=== PATIENT | female | born 1995 | race Caucasian/White ===

== ENCOUNTER 2018-04-13 09:18 | Outpatient (CLI) | payer BC, MEDICAID ==
[2018-04-13 12:52] LABS: BASOPHILS % (AUTO) 0.1 %; EOSINOPHILS # (AUTO) 0.1 10^3/uL (0.0-0.7); EOSINOPHILS % (AUTO) 0.9 %; LYMPHOCYTES # (AUTO) 2.1 10^3/uL (1.5-3.5); LYMPHOCYTES % (AUTO) 26.4 %; MEAN CORPUSCULAR HEMOGLOBIN 30.9 pg (27.0-31.0); MEAN CORPUSCULAR HGB CONC 34.4 g/dL (32.0-36.0); MEAN CORPUSCULAR VOLUME 89.8 fL (81.0-99.0); MEAN PLATELET VOLUME 10.3 fL (7.9-10.8); MONOCYTES # (AUTO) 0.4 10^3/uL (0.0-1.0); MONOCYTES % (AUTO) 5.3 %; NEUTROPHILS # (AUTO) 5.4 10^3/uL (1.5-6.6); NEUTROPHILS % (AUTO) 67.3 %; PLT - PLATELET COUNT 185 10^3/uL (130-450); RED BLOOD COUNT 4.55 10^6/uL (4.20-5.40); RED CELL DISTRIBUTION WIDTH 12.5 % (12.0-15.0)
[2018-04-13 13:00] LABS: ALBUMIN 3.9 g/dL (3.2-5.5); ALBUMIN/GLOBULIN RATIO 1.1 (1.0-2.2); BILIRUBIN,TOTAL 0.8 mg/dL (0.2-1.0); CREATININE 0.7 mg/dL (0.4-1.0); TOTAL PROTEIN 7.3 g/dL (6.7-8.2)
== END 2018-04-13 09:19 | disposition home or self-care (01) ==
LOC: LAB.WCP 09:18
PROVIDERS: ATTEND Nurse Practitioner
DX: R10.9 Unspecified abdominal pain (principal)
CPT/HCPCS: 36415; 80053; 85025

== ENCOUNTER 2018-08-21 21:02 | Outpatient (CLI) | payer BC ==
--- NOTE | 2018-08-22 11:14 | Ultrasound Report ---
Reason: PERIUMBILICAL HERNIA Procedure Date: 08/21/2018 Accession Number: [id number] / [id number] Procedure: US - Abdomen Limited CPT Code: FULL RESULT: EXAM: ABDOMEN ULTRASOUND LIMITED EXAM DATE: 08/21/2018 09:10 PM. CLINICAL HISTORY: Periumbilical hernia. COMPARISON: None. TECHNIQUE: Real-time scanning was performed with static images obtained. FINDINGS: Focused abdominal ultrasound was performed along the midline of the anterior abdominal wall just superior to the umbilicus. This reveals an approximately 6 mm wide focal defect in the rectus sheath with reducible herniation of abdominal wall musculature. No hernia with demonstrable peritoneal content is identified. IMPRESSION: Questionable abdominal wall defect as described. RADIA
== END 2018-08-21 21:03 | disposition home or self-care (01) ==
LOC: DI 21:02
PROVIDERS: ATTEND Physician Assistant
DX: K42.9 Umbilical hernia without obstruction or gangrene (principal)
CPT/HCPCS: 76705

== ENCOUNTER 2019-01-01 07:08 | Day surgery (SDC) | payer BC ==
[2019-01-01] MEDS ORDERED: LACTATED RINGERS 1,000 ML IV ONE ×2 (07:17→09:53)
[2019-01-01 07:30] LABS: HCG UR QUAL NEGATIVE
--- NOTE | 2019-01-01 08:02 | ANESTHESIA ---
Pre-Anesthesia VS, & Labs - Diagnosis Umbilical hernia - Procedure umbilical hernia repair Vital Signs: Temp Pulse Resp BP Pulse Ox 36.7 C 121 H 17 113/86 H 97 01/01/19 07:18 01/01/19 07:18 01/01/19 07:18 01/01/19 07:18 01/01/19 07:18 Height 5 ft 7 in Weight (kg) 70 kg Body Mass Index 21.1 - NPO >8 hours - Is Patient ?: No Home Medications and Allergies Home Medications: Ambulatory Orders Ethynodiol D-Ethinyl Estradiol [Ethynodiol-Eth Estra 1Mg-50Mcg] 1 each PO DAILY 12/05/18 Metoclopramide [Reglan] 10 mg PO Q6H PRN 12/05/18 Rizatriptan Benzoate [Maxalt Operational Trainer] 10 mg PO ONCE PRN 12/05/18 Topiramate [Topamax] 50 mg PO DAILY 10/25/14 Ethynodiol D-Ethinyl Estradiol [Ethynodiol-Eth Estra 1Mg-50Mcg] 1 each PO DAILY 12/05/18 Metoclopramide [Reglan] 10 mg PO Q6H PRN 12/05/18 Rizatriptan Benzoate [Maxalt Operational Trainer] 10 mg PO ONCE PRN 12/05/18 Allergies/Adverse Reactions: Allergies Allergy/AdvReac Type Severity Reaction Status Date / Time latex Allergy Rash Verified 05/19/14 12:18 perfume Allergy Rash, Verified 12/05/18 10:50 itching Anes History & Medical History - Anesthetic History Family history of Anesthesia Complications: Denies Family history of Malignant Hyperthermia: Denies - Medical History Cardiovascular: reports: None Pulmonary: reports: None Gastrointestinal: reports: None Urinary: reports: None Neuro: reports: Migraines Musculoskeletal: reports: None Endocrine/Autoimmune: reports: None Blood Disorders: reports: None Smoking Status: Never smoker Psychosocial: reports: Anxiety - Surgical History Eyes Ears Nose Throat (EENT): Other (wisdom teeth) Exam General: Alert, Oriented x3, Cooperative, No acute distress Dental: WNL Mouth Openin Fingerbreadth Neck Mobility: Normal Mallampati classification: I Thyromental Distance: greater than 6 cm Respiratory: Lungs clear, Normal breath sounds, No respiratory distress, No accessory muscle use Cardiovascular: Regular rate, Normal S1, Normal S2, No murmurs Mental/Cognitive Status: Alert/Oriented X3, Normal for patient Plan Anesthesia Type: General Consent for Procedure(s) Verified and Reviewed: Yes Code Status: Attempt Resuscitation ASA classification: 1-Healthy patient Is this case an emergency?: No
[2019-01-01] MEDS ORDERED: LIDOCAINE 1% 50 ML MDV ONE (08:25)
[2019-01-01] MEDS ORDERED: BUPIVACAINE 0.5%-EPI 1:200000 PF 30 ML VIAL ONE (08:25)
[2019-01-01] MEDS ORDERED: CEFAZOLIN SODIUM IN 0.9 % NACL 2 GM/100 ML BAG IV ONE (08:51)
[2019-01-01] MEDS ORDERED: LIDOCAINE MPF 1%-EPI 1:200000 30 ML VIAL ONE (08:53)
[2019-01-01] MEDS ORDERED: LIDOCAINE-MPF 1% 30 ML VIAL ONE (08:53)
[2019-01-01] MEDS ORDERED: BUPIVACAINE 0.5% PF 30 ML VIAL SUBQ ONE ×2 (09:10)
[2019-01-01] MEDS ORDERED: LIDOCAINE 1%-EPI 1:100000 30 ML MDV SUBQ ONE ×2 (09:10)
[2019-01-01] MEDS ORDERED: ONDANSETRON 4 MG/2 ML VIAL IVP ONE (09:18)
[2019-01-01] MEDS ORDERED: DEXAMETHASONE 4 MG/ML VIAL IVP ONE (09:18)
[2019-01-01] MEDS ORDERED: PROPOFOL 200 MG/20 ML VIAL IVP ONE (09:18)
[2019-01-01] MEDS ORDERED: fentaNYL 100 MCG/2 ML VIAL IVP ONE (09:18)
[2019-01-01] MEDS ORDERED: MIDAZOLAM 2 MG/2 ML VIAL IVP ONE (09:18)
[2019-01-01] MEDS ORDERED: KETOROLAC 30 MG/ML VIAL IVP ONE (09:18)
--- NOTE | 2019-01-01 09:31 | OPERATIVE REPORT ---
Operative Report - General Procedure Date: 01/01/19 Planned Procedure: Umbilical hernia repair Pre-Op Diagnosis: Umbilical hernia Procedure Performed: Direct repair of umbilical hernia Post Op Diagnosis: Same - Procedure Note Primary Surgeon: Deven Anesthesia Provider: EDISON Johnson Anesthesia Technique: General LMA, Local Pathology: None IV Fluids (mL): 800 Estimated Blood Loss (mL): 5 Findings: 1 cm umbilical defect containing only preperitoneal fat Complications: None apparent - Other Other Information/Narrative: After obtaining informed consent, the patient is brought to the operating room and placed in the supine position on the operating table. Following successful induction of general endotracheal anesthesia, appropriate padding of all bony pr ominences, and placement of appropriate monitors, the abdomen is prepped and draped in the standard surgical fashion. A timeout was held per MTOAP protocol. Following infiltration with local anesthetic to create a field block, an incision was created directly through the umbilical defect and carried down through the skin and subtendinous tissue to reveal the fascia below. Metzenbaum scissors were used to liberate the skin from the underlying fascial tissue at the umbilicus. We were able to define the fascial defect carefully. It was determined to be approximately 1 cm in size and contained only preperitoneal fat. This was carefully liberated and allowed to drop back into the abdominal cavity. Due to the small size of the defect and the general good health of the patient and her tissues, we elected to repair this defect directly. 2 interrupted 0 Prolene sutures were placed into the defect. The knots were buried so as not to come through the skin. The wound was checked for hemos tasis. The repair was checked for completeness. The area was irrigated with warm saline solution and aspirated free of all fluid. The umbilical skin was closed in 2 layers with Vicryl and Monocryl sutures and Dermabond was applied to the skin.All sponge, needle, and instrument counts were correct at the conclusion of the case. The patient was allowed to awaken from anesthesia without difficulty and taken to the postanesthesia care unit in good condition.
[2019-01-01] MEDS ORDERED: HYDROmorphone 0.5 MG/0.5 ML SYRINGE IVP PRN (09:34)
[2019-01-01] MEDS ORDERED: oxyCODONE 5 MG TABLET PO PRN (09:34)
[2019-01-01] MEDS ORDERED: ONDANSETRON 4 MG/2 ML VIAL IVP PRN (09:34)
[2019-01-01] MEDS ORDERED: MEPERIDINE 50 MG/ML VIAL ONE (09:55)
[2019-01-01 10:14] VITALS: BP 120/74
[2019-01-01] MEDS ORDERED: oxyCODONE 5 MG TABLET ONE (10:34)
[2019-01-01] MEDS ORDERED: METOCLOPRAMIDE 10 MG TABLET PO PRN (10:43)
[2019-01-01] MEDS ORDERED: RIZATRIPTAN BENZOATE 10 MG PO PRN (10:43)
[2019-01-02] MEDS ORDERED: [UNRECOGNIZED DRUG - OTHER] PO SCH (09:00)
[2019-01-02] MEDS ORDERED: TOPIRAMATE 25 MG TABLET PO SCH (09:00)
== END 2019-01-01 07:09 | disposition home or self-care (01) ==
LOC: SDS 07:08
PROVIDERS: ATTEND Surgery
PROC: 0WQF0ZZ Repair Abdominal Wall, Open Approach (ICD-10-PCS; principal; 2019-01-01 08:30)
DX: K42.9 Umbilical hernia without obstruction or gangrene (principal)
CPT/HCPCS: 49585; 81025; A9270; J0690; J2175; J7120

== ENCOUNTER 2019-08-12 09:10 | Outpatient (CLI) | payer BC ==
[2019-08-12 21:11] LABS: TRICHOMONAS VAGINALIS DNA NEGATIVE (NEGATIVE)
== END 2019-08-12 23:59 | disposition home or self-care (01) ==
LOC: LAB.R 09:10
PROVIDERS: ATTEND Nurse Practitioner Obstetrics & Gynecology
DX: Z11.3 Encounter for screening for infections with a predominantly sexual mode of transmission (principal)
CPT/HCPCS: 87491; 87591; 87661

== ENCOUNTER 2020-04-01 17:38 | Outpatient (CLI) | payer BC | END 2020-04-01 17:39 | disposition home or self-care (01) | LOC: COV 17:38 | PROVIDERS: ATTEND Family Medicine | DX: Z20.828 Contact with and (suspected) exposure to other viral communicable diseases (principal) ==

== ENCOUNTER 2020-04-02 13:32 | Outpatient (CLI) | payer BC | END 2020-04-02 13:33 | disposition home or self-care (01) | LOC: COV 13:32 | PROVIDERS: ATTEND Family Medicine | DX: Z20.828 Contact with and (suspected) exposure to other viral communicable diseases (principal) ==

== ENCOUNTER 2020-08-20 19:39 | Outpatient (CLI) | payer OTHER | END 2020-08-20 19:40 | disposition home or self-care (01) | LOC: COV 19:39 | PROVIDERS: ATTEND Family Medicine | DX: R50.9 Fever, unspecified (principal); M79.10 Myalgia, unspecified site; R07.0 Pain in throat; Z20.822 Contact with and (suspected) exposure to COVID-19 ==

== ENCOUNTER 2021-04-01 07:00 | Outpatient (CLI) | payer OTHER ==
[2021-04-01 21:31] LABS: BACTERIAL VAGINOSIS DNA NEGATIVE (NEGATIVE); CANDIDA GLABRATA DNA NEGATIVE (NEGATIVE); CANDIDA GROUP DNA POSITIVE (NEGATIVE); CANDIDA KRUSEI DNA NEGATIVE (NEGATIVE); TRICHOMONAS VAGINALIS DNA NEGATIVE (NEGATIVE)
== END 2021-04-01 23:59 | disposition home or self-care (01) ==
LOC: LAB 07:00
PROVIDERS: ATTEND Obstetrics & Gynecology
DX: B37.9 Candidiasis, unspecified (principal)
CPT/HCPCS: 87661; 87801